=== PATIENT | male | born 1985 | race Two or more races ===

== ENCOUNTER 2023-03-21 09:06 | Emergency (ER) | payer OTHER ==
[~2023-03-21] VITALS: Ht 188 cm; Wt 145.1 kg
[2023-03-21] MEDS ORDERED: CIPRO500 MG PO (12:07)
== END 2023-03-21 13:00 | disposition home or self-care (01) ==
LOC: ER 09:06
DX: M54.59 Other low back pain (principal)

== ENCOUNTER 2023-10-20 07:42 | Emergency (ER) | payer OTHER ==
[~2023-10-20] VITALS: Ht 188 cm; Wt 149.7 kg
[~2023-10-20 07:42] MED LIST: CIPRO500 MG PO
[2023-10-20 10:41] LABS: PH,URINE 6.5 (5.0-8.0); URINE APPEARANCE Clear; URINE BILIRRUBIN Negative (NEGATIVE); URINE BLOOD Small; URINE COLOR Yellow; URINE GLUCOSE Negative (NEGATIVE); URINE LEUKOCYTE Negative; URINE NITRATE Negative; URINE PROTEIN Negative (NEGATIVE)
[2023-10-20 10:45] LABS: URINE BACTERIA 23.9 uL (0.0-1933); URINE EPITHELIAL CELLS 3.3 uL (0.0-38.8); URINE RBC 40.9 uL (0.0-20.8); URINE WBC 4.7 uL (0.0-23.2)
== END 2023-10-20 11:26 | disposition home or self-care (01) ==
LOC: ER 07:43
DX: R30.0 Dysuria (principal)